=== PATIENT | female | born 1975 | race Caucasian/White ===

== ENCOUNTER 2021-07-03 16:56 | Emergency (ER) | payer OTHER ==
[2021-07-03 19:45] LABS: HEMOGLOBIN 12.8 gm/dl (12.3-15.3); RED BLOOD COUNT 4.14 M/UL (4.00-5.10); WHITE BLOOD COUNT 7.9 K/UL (4.5-11.0)
[2021-07-03 19:51] LABS: BUN/CREATININE RATIO 21 (0-10)
[2021-07-03] MEDS ORDERED: PYRIDIUM200 MG PO (22:22)
[2021-07-03] MEDS ORDERED: ZOFRAN4 MG PO (22:22)
== END 2021-07-04 02:06 | disposition home or self-care (01) ==
LOC: ER1 16:56
PROVIDERS: Physician Assistant Medical
DX: N12 Tubulo-interstitial nephritis, not specified as acute or chronic (principal); I25.2 Old myocardial infarction; Z79.4 Long term (current) use of insulin; J44.9 Chronic obstructive pulmonary disease, unspecified; Z90.710 Acquired absence of both cervix and uterus; F17.210 Nicotine dependence, cigarettes, uncomplicated
CPT/HCPCS: 36600; 80053; 81001; 82009; 82803; 83605; 85025; 87040; 96374; 96375; 99284; J0696; J2270; J2405; Q9967

== ENCOUNTER 2021-07-20 19:19 | Inpatient (IN) | payer OTHER ==
[~2021-07-20] VITALS: Ht 160 cm; Wt 45.4 kg
[~2021-07-20 19:19] MED LIST: LEVOFLOXACIN750 MG PO; PYRIDIUM200 MG PO; ZOFRAN4 MG PO
[2021-07-20 22:14] LABS: HEMOGLOBIN 14.7 gm/dl (12.3-15.3); RED BLOOD COUNT 4.7 M/UL (4.00-5.10)
[2021-07-20 22:50] LABS: BUN/CREATININE RATIO 23 (0-10)
[2021-07-21] MEDS ORDERED: HUMALOG100 UNIT/3 SC ×2 (13:10)
[2021-07-21] MEDS ORDERED: LANTUS SOL100 UNIT/1 SC (13:11)
[2021-07-22 03:36] LABS: WHITE BLOOD COUNT 8.8 K/UL (4.5-11.0)
[2021-07-22 03:47] LABS: HEMOGLOBIN 10.7 gm/dl (12.3-15.3); RED BLOOD COUNT 3.55 M/UL (4.00-5.10)
[2021-07-22] MEDS ORDERED: SODIUM BICARBO650 MG PO (16:27)
[2021-07-22] MEDS ORDERED: LEVOFLOXACIN750 MG PO (16:31)
== END 2021-07-22 19:15 | disposition home or self-care (01) | DRG 871 ==
LOC: ER1 19:19 → CDU 07-21 02:50 → PROG CARE 07-21 19:33
PROVIDERS: Physician Assistant; ADMIT Internal Medicine
DX: A41.9 Sepsis, unspecified organism (principal); E10.10 Type 1 diabetes mellitus with ketoacidosis without coma; Z20.822 Contact with and (suspected) exposure to COVID-19; E43 Unspecified severe protein-calorie malnutrition; E87.1 Hypo-osmolality and hyponatremia; R64 Cachexia; E87.2 Acidosis; Z68.1 Body mass index [BMI] 19.9 or less, adult; N39.0 Urinary tract infection, site not specified; N25.89 Other disorders resulting from impaired renal tubular function; E10.42 Type 1 diabetes mellitus with diabetic polyneuropathy; R33.9 Retention of urine, unspecified; R91.8 Other nonspecific abnormal finding of lung field; E86.0 Dehydration; N31.9 Neuromuscular dysfunction of bladder, unspecified; F17.210 Nicotine dependence, cigarettes, uncomplicated; Z91.14 Patient's other noncompliance with medication regimen; Z79.4 Long term (current) use of insulin; Z90.710 Acquired absence of both cervix and uterus; I25.2 Old myocardial infarction; Z87.440 Personal history of urinary (tract) infections
CPT/HCPCS: 36415; 71250; 80048; 80053; 81001; 82009; 82550; 82553; 82803; 82962; 83605; 83690; 83874; 84484; 85025; 86140; 87040; 87086; 93005; 96374; 96375; 97161; 99285; J1335; J1650; J1885; J2270; J2405; J7030; J7120; U0002

== ENCOUNTER 2021-08-06 01:21 | Inpatient (IN) | payer OTHER ==
[~2021-08-06] VITALS: Ht 160 cm; Wt 43.1 kg
[~2021-08-06 01:21] MED LIST changes: +HUMALOG100 UNIT/3 SC; +LANTUS SOL100 UNIT/1 SC; +SODIUM BICARBO650 MG PO
[2021-08-06 01:54] LABS: HEMOGLOBIN 12.4 gm/dl (12.3-15.3); RED BLOOD COUNT 4.02 M/UL (4.00-5.10); WHITE BLOOD COUNT 5.6 K/UL (4.5-11.0)
[2021-08-06 02:31] LABS: BUN/CREATININE RATIO 17 (0-10)
[2021-08-06 11:41] LABS: BUN/CREATININE RATIO 14 (0-10)
[2021-08-07 05:12] LABS: WHITE BLOOD COUNT 6.4 K/UL (4.5-11.0)
[2021-08-07 05:38] LABS: HEMOGLOBIN 10.1 gm/dl (12.3-15.3); RED BLOOD COUNT 3.36 M/UL (4.00-5.10)
--- NOTE | 2021-08-07 15:01 | NUR ---
08/07/21 1500 report called to [facility] to be transferred to room 4578
[2021-08-08 07:13] LABS: RED BLOOD COUNT 3.37 M/UL (4.00-5.10)
[2021-08-08 07:24] LABS: WHITE BLOOD COUNT 4.4 K/UL (4.5-11.0)
[2021-08-08 07:53] LABS: BUN/CREATININE RATIO 22 (0-10)
--- NOTE | 2021-08-08 22:59 | NUR ---
contacted pharmacy regarding possible duplicate order for HUMALOG.
[2021-08-09 05:55] LABS: HEMOGLOBIN 10.1 gm/dl (12.3-15.3); RED BLOOD COUNT 3.36 M/UL (4.00-5.10); WHITE BLOOD COUNT 5.1 K/UL (4.5-11.0)
--- NOTE | 2021-08-09 12:05 | NUR ---
CALLED [employer] [facility] TO COME PICK HER UP , [facility] HAS NO OTHER WAY TO GET HOME , THEY WILL BE HERE SHORTLY TO PICK HER UP AND WILL CALL [phone] WHEN THEY GET HERE
== END 2021-08-09 13:12 | disposition home or self-care (01) | DRG 690 ==
LOC: ER1 01:21 → CDU 03:39 → 3 EAST 21:39 → M/S 08-07 15:18
PROVIDERS: Emergency Medicine; Internal Medicine; Physician Assistant; ADMIT Internal Medicine
DX: N13.6 Pyonephrosis (principal); N30.00 Acute cystitis without hematuria; E44.0 Moderate protein-calorie malnutrition; E87.1 Hypo-osmolality and hyponatremia; Z20.822 Contact with and (suspected) exposure to COVID-19; M84.48XA Pathological fracture, other site, initial encounter for fracture; Z68.1 Body mass index [BMI] 19.9 or less, adult; E87.2 Acidosis; B95.2 Enterococcus as the cause of diseases classified elsewhere; R73.9 Hyperglycemia, unspecified; N28.1 Cyst of kidney, acquired; R33.9 Retention of urine, unspecified; N31.9 Neuromuscular dysfunction of bladder, unspecified; F17.210 Nicotine dependence, cigarettes, uncomplicated; K76.0 Fatty (change of) liver, not elsewhere classified; E11.40 Type 2 diabetes mellitus with diabetic neuropathy, unspecified; Z87.440 Personal history of urinary (tract) infections; Z79.4 Long term (current) use of insulin; Z90.710 Acquired absence of both cervix and uterus; Z82.49 Family history of ischemic heart disease and other diseases of the circulatory system
CPT/HCPCS: 0240U; 36415; 80048; 80053; 80202; 81001; 82803; 82962; 83605; 83735; 85025; 87040; 87077; 87086; 87186; 96374; 96375; 96376; 97116-GP-CQ; 97161; 99285; J0696; J1170; J1650; J2270; J2405; J3370; J7070; Q9967

== ENCOUNTER 2021-08-15 19:18 | Inpatient (IN) | payer OTHER ==
[~2021-08-15] VITALS: Ht 160 cm; Wt 42.6 kg
[2021-08-15 20:30] LABS: RED BLOOD COUNT 4.02 M/UL (4.00-5.10); WHITE BLOOD COUNT 11.7 K/UL (4.5-11.0)
[2021-08-15 20:34] LABS: HEMOGLOBIN 12.4 gm/dl (12.3-15.3)
[2021-08-16 02:18] LABS: BUN/CREATININE RATIO 19 (0-10)
[2021-08-16] MEDS ORDERED: PHENERGAN 25 MG25 M1 PO (08:34)
[2021-08-17 04:35] LABS: WHITE BLOOD COUNT 11.6 K/UL (4.5-11.0)
[2021-08-17 04:36] LABS: HEMOGLOBIN 9.1 gm/dl (12.3-15.3); RED BLOOD COUNT 3.03 M/UL (4.00-5.10)
[2021-08-18 04:45] LABS: HEMOGLOBIN 9.3 gm/dl (12.3-15.3); RED BLOOD COUNT 3.12 M/UL (4.00-5.10); WHITE BLOOD COUNT 12.9 K/UL (4.5-11.0)
--- NOTE | 2021-08-18 12:47 | NUR ---
NOTIFIED DR. ARANGO ABOUT CHRONIC DIARREHEA ORDERS RECIEVED FOR A C-DIFF CULTURE, PT REQUESTED INCREASE IN PAIN MEDICATION, AND FOR REFUSAL OF HEPARIN STATES THAT HE WILL ADDRESS THE ISSUE WHEN HE SEES HER TODAY.
[2021-08-19 06:36] LABS: HEMOGLOBIN 9.7 gm/dl (12.3-15.3); RED BLOOD COUNT 3.22 M/UL (4.00-5.10); WHITE BLOOD COUNT 12.5 K/UL (4.5-11.0)
[2021-08-19 07:14] LABS: BUN/CREATININE RATIO 17 (0-10)
--- NOTE | 2021-08-19 13:20 | NUR ---
Pt stated that she was able to hold down her fruit from lunch with no n/v at this time, states that it was [id number] today whens she was able to eat her lunch. Pt has tolerated fruit from lunch tray, but has not eaten anything else from the tray. Will reassess in 30 minutes to see if pt tried to consume more of her lunch tray.
[2021-08-20 03:41] LABS: HEMOGLOBIN 9.2 gm/dl (12.3-15.3); RED BLOOD COUNT 3.14 M/UL (4.00-5.10); WHITE BLOOD COUNT 12.8 K/UL (4.5-11.0)
[2021-08-20 04:09] LABS: BUN/CREATININE RATIO 18 (0-10)
[2021-08-20 11:33] LABS: BUN/CREATININE RATIO 15 (0-10)
[2021-08-21 05:34] LABS: HEMOGLOBIN 8.5 gm/dl (12.3-15.3); RED BLOOD COUNT 2.92 M/UL (4.00-5.10); WHITE BLOOD COUNT 10.7 K/UL (4.5-11.0)
[2021-08-21 05:56] LABS: BUN/CREATININE RATIO 17 (0-10)
--- NOTE | 2021-08-21 06:20 | NUR ---
PATIENTS OMER LEAKED ON FLOOR. HOUSE KEEPING NOTIFIED.
--- NOTE | 2021-08-21 11:54 | NUR ---
WHILE ROUNDING ON PATIENT, THE PATIENT STATED THAT SHE WAS FEELING LIGHT HEADED AND WEAK. I CHECKED HER GLUCOSE AND IT WAS 51. I GIVE PATIENT 8OZ OF ORANGE JUICE FOR HYPOGLYCEMIA. WILL RECHECK GLUCOSE IN 15 MINUTES AND CONTINUE TO MONITOR PATIENT.
[2021-08-21] MEDS ORDERED: ZYVOX600 MG PO (14:02)
== END 2021-08-21 16:07 | disposition home or self-care (01) | DRG 699 ==
LOC: ER1 19:18 → M/S 08-16 00:09 → CDU 08-16 00:09 → M/S 08-16 13:44
PROVIDERS: Emergency Medicine; Internal Medicine; ADMIT Family Medicine
DX: T83.511A Infection and inflammatory reaction due to indwelling urethral catheter, initial encounter (principal); N30.00 Acute cystitis without hematuria; Z20.822 Contact with and (suspected) exposure to COVID-19; Z16.21 Resistance to vancomycin; E44.0 Moderate protein-calorie malnutrition; Z68.1 Body mass index [BMI] 19.9 or less, adult; E87.1 Hypo-osmolality and hyponatremia; E87.2 Acidosis; N17.9 Acute kidney failure, unspecified; B95.2 Enterococcus as the cause of diseases classified elsewhere; E86.0 Dehydration; E10.65 Type 1 diabetes mellitus with hyperglycemia; Y84.6 Urinary catheterization as the cause of abnormal reaction of the patient, or of later complication, without mention of misadventure at the time of the procedure; J44.9 Chronic obstructive pulmonary disease, unspecified; F17.210 Nicotine dependence, cigarettes, uncomplicated; E87.6 Hypokalemia; E10.42 Type 1 diabetes mellitus with diabetic polyneuropathy; R33.9 Retention of urine, unspecified; N31.9 Neuromuscular dysfunction of bladder, unspecified; Z79.4 Long term (current) use of insulin; Z87.440 Personal history of urinary (tract) infections; Z90.710 Acquired absence of both cervix and uterus; Z81.8 Family history of other mental and behavioral disorders; Z71.6 Tobacco abuse counseling
CPT/HCPCS: 36415; 80048; 80053; 80202; 81001; 82009; 82803; 82962; 83036; 83605; 83735; 85025; 85027; 87040; 87077; 87086; 87186; 87449; 96374; 96375; 96376; 97116; 97116-GP-CQ; 97161; 97166; 99285; J0878; J1170; J1644; J2020; J2270; J2405; J2543; J3370; J7030; J7070; Q9967; U0002

== ENCOUNTER 2021-11-17 16:59 | Inpatient (IN) | payer OTHER ==
[~2021-11-17] VITALS: Ht 160 cm; Wt 40.8 kg
[~2021-11-17 16:59] MED LIST changes: -LANTUS SOL100 UNIT/1 SC; +LANTUS SOL100 UNIT/1 SQ; +PHENERGAN 25 MG25 M1 PO; +ZYVOX600 MG PO
[2021-11-17 17:54] LABS: HEMOGLOBIN 12.6 gm/dl (12.3-15.3); RED BLOOD COUNT 4.38 M/UL (4.00-5.10); WHITE BLOOD COUNT 5.7 K/UL (4.5-11.0)
[2021-11-17 18:19] LABS: BUN/CREATININE RATIO 27 (0-10)
[2021-11-17 22:55] LABS: BUN/CREATININE RATIO 26 (0-10)
[2021-11-18 02:20] LABS: BUN/CREATININE RATIO 24 (0-10)
[2021-11-18 05:36] LABS: WHITE BLOOD COUNT 6.8 K/UL (4.5-11.0)
[2021-11-18 05:39] LABS: HEMOGLOBIN 10.1 gm/dl (12.3-15.3); RED BLOOD COUNT 3.52 M/UL (4.00-5.10)
[2021-11-18 05:54] LABS: BUN/CREATININE RATIO 23 (0-10)
[2021-11-18 10:06] LABS: BUN/CREATININE RATIO 21 (0-10)
[2021-11-18] MEDS ORDERED: FERROUS GLUCON324 M1 PO (11:08)
[2021-11-18] MEDS ORDERED: FAMOTIDINE20 MG PO (11:08)
[2021-11-18] MEDS ORDERED: GABAPENTIN100 MG PO (11:09)
[2021-11-18] MEDS ORDERED: TAB-A-VITE TA400 MCG PO (11:10)
[2021-11-18] MEDS ORDERED: SERTRALINE HCL50 MG PO (11:10)
--- NOTE | 2021-11-18 17:15 | NUR ---
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
[2021-11-19] MEDS ORDERED: PERCOCET 7.5-31 EACH PO (13:38)
== END 2021-11-19 16:00 | disposition home or self-care (01) | DRG 638 ==
LOC: ER1 16:59 → CCU 21:31 → CDU 21:31 → CCU 11-18 00:26 → MED SURG 4 11-18 16:58
PROVIDERS: Emergency Medicine; Family Medicine; Internal Medicine Infectious Disease; ADMIT Internal Medicine
DX: E10.10 Type 1 diabetes mellitus with ketoacidosis without coma (principal); N13.30 Unspecified hydronephrosis; R64 Cachexia; Z20.822 Contact with and (suspected) exposure to COVID-19; Z68.1 Body mass index [BMI] 19.9 or less, adult; E44.0 Moderate protein-calorie malnutrition; E87.6 Hypokalemia; E83.42 Hypomagnesemia; N31.9 Neuromuscular dysfunction of bladder, unspecified; E10.42 Type 1 diabetes mellitus with diabetic polyneuropathy; F17.210 Nicotine dependence, cigarettes, uncomplicated; Z79.4 Long term (current) use of insulin; Z87.440 Personal history of urinary (tract) infections; Z83.3 Family history of diabetes mellitus
CPT/HCPCS: 36415; 36600; 71045; 80048; 80053; 80307; 81001; 82009; 82550; 82553; 82803; 82962; 83036; 83605; 83690; 83735; 84439; 84443; 84484; 85025; 87040; 87086; 96374; 96375; 96376; 97161; 97166; 97530; 99285; G0378; J0692; J1650; J2185; J2270; J2405; J2543; J3475; J7030; Q9967; U0002

== ENCOUNTER 2022-01-15 20:51 | Inpatient (IN) | payer OTHER ==
[~2022-01-15] VITALS: Ht 160 cm; Wt 40.4 kg
[~2022-01-15 20:51] MED LIST changes: +FAMOTIDINE20 MG PO; +FERROUS GLUCON324 M1 PO; +GABAPENTIN100 MG PO; -LANTUS SOL100 UNIT/1 SQ; +LEVEMIR100 UNIT/1 SQ; +NOVOLOG FL100 UNIT/1 SQ; +PERCOCET 7.5-31 EACH PO; +SERTRALINE HCL50 MG PO; +TAB-A-VITE TA400 MCG PO
[2022-01-15 21:26] LABS: HEMOGLOBIN 10.7 gm/dl (12.3-15.3); RED BLOOD COUNT 3.44 M/UL (4.00-5.10)
[2022-01-16 04:53] LABS: HEMOGLOBIN 10.1 gm/dl (12.3-15.3); RED BLOOD COUNT 3.23 M/UL (4.00-5.10); WHITE BLOOD COUNT 10.4 K/UL (4.5-11.0)
[2022-01-16 05:31] LABS: BUN/CREATININE RATIO 16 (0-10)
[2022-01-16 08:49] LABS: BUN/CREATININE RATIO 14 (0-10)
[2022-01-16] MEDS ORDERED: PROTONIX 40 MG40 M1 PO (11:05)
[2022-01-16 12:29] LABS: BUN/CREATININE RATIO 14 (0-10)
[2022-01-16 16:37] LABS: BUN/CREATININE RATIO 12 (0-10)
[2022-01-17 02:03] LABS: BUN/CREATININE RATIO 14 (0-10)
[2022-01-17 05:02] LABS: HEMOGLOBIN 10.6 gm/dl (12.3-15.3); RED BLOOD COUNT 3.43 M/UL (4.00-5.10); WHITE BLOOD COUNT 11.1 K/UL (4.5-11.0)
[2022-01-17 14:14] LABS: BUN/CREATININE RATIO 13 (0-10)
[2022-01-17 15:27] LABS: BUN/CREATININE RATIO 13 (0-10)
--- NOTE | 2022-01-18 00:45 | NUR ---
IV ACCESS ATTEMPTED MULTIPLE TIMES WITHOUT SUCCESS. ER STAFF SENDING PERSONNEL TO ATTEMPT ULTRASOUND IV ACCESS.
[2022-01-18 04:48] LABS: HEMOGLOBIN 9.4 gm/dl (12.3-15.3)
[2022-01-18 04:52] LABS: RED BLOOD COUNT 3.04 M/UL (4.00-5.10); WHITE BLOOD COUNT 6.8 K/UL (4.5-11.0)
[2022-01-18 05:22] LABS: BUN/CREATININE RATIO 10 (0-10)
[2022-01-18] MEDS ORDERED: PROAIR HFA8.5 GM INH (09:57)
[2022-01-18] MEDS ORDERED: LISINOPRIL10 MG PO (09:58)
[2022-01-18] MEDS ORDERED: ADVAIR 500-501 EACH INH (09:58)
[2022-01-18] MEDS ORDERED: ALBUTEROL2.5 MG/3 M INH (09:58)
[2022-01-18] MEDS ORDERED: LEVOCETIRIZINE D5 MG PO (09:58)
[2022-01-18] MEDS ORDERED: SPIRIVA18 MCG INH (09:59)
[2022-01-18] MEDS ORDERED: LANTUS INS100 UTS/M1 SC (11:31)
[2022-01-18] MEDS ORDERED: HUMALOG 10100 UNITS/ SC (11:31)
[2022-01-18] MEDS ORDERED: LEVOFLOXACIN750 MG PO (11:35)
== END 2022-01-18 16:08 | disposition home or self-care (01) | DRG 871 ==
LOC: ER1 20:51 → CCU 23:08 → CDU 23:08 → CCU 01-16 01:00
PROVIDERS: Internal Medicine Pulmonary Disease; Physician Assistant; ADMIT Internal Medicine
PROC: 3E03329 Introduction of Other Anti-infective into Peripheral Vein, Percutaneous Approach (ICD-10-PCS; 2022-01-15)
PROC: 3E033XZ Introduction of Vasopressor into Peripheral Vein, Percutaneous Approach (ICD-10-PCS; principal; 2022-01-16)
DX: A41.9 Sepsis, unspecified organism (principal); E10.10 Type 1 diabetes mellitus with ketoacidosis without coma; E43 Unspecified severe protein-calorie malnutrition; R65.21 Severe sepsis with septic shock; N13.6 Pyonephrosis; N17.9 Acute kidney failure, unspecified; E10.40 Type 1 diabetes mellitus with diabetic neuropathy, unspecified; G89.29 Other chronic pain; N32.0 Bladder-neck obstruction; F11.10 Opioid abuse, uncomplicated; L89.151 Pressure ulcer of sacral region, stage 1; E83.39 Other disorders of phosphorus metabolism; D64.9 Anemia, unspecified; Z20.822 Contact with and (suspected) exposure to COVID-19; E83.42 Hypomagnesemia; N31.9 Neuromuscular dysfunction of bladder, unspecified; E10.65 Type 1 diabetes mellitus with hyperglycemia; F17.210 Nicotine dependence, cigarettes, uncomplicated; Z90.89 Acquired absence of other organs; Z91.14 Patient's other noncompliance with medication regimen; Z90.710 Acquired absence of both cervix and uterus; Z83.3 Family history of diabetes mellitus; Z79.4 Long term (current) use of insulin; Z79.899 Other long term (current) drug therapy
CPT/HCPCS: 36415; 71045; 80048; 80053; 80307; 81001; 82550; 82553; 82800; 82962; 83605; 83735; 83880; 84100; 84439; 84443; 84484; 84550; 85025; 86140; 87040; 87077; 87086; 87186; 93005; 96374; 96375; 96376; 99285; C9113; J0696; J1170; J1650; J2185; J2270; J2405; J2550; J3475; J3480; Q9967

== ENCOUNTER 2022-01-30 15:35 | Inpatient (IN) | payer OTHER ==
[~2022-01-30] VITALS: Ht 160 cm; Wt 36.3 kg
[~2022-01-30 15:35] MED LIST changes: +ADVAIR 500-501 EACH INH; +ALBUTEROL2.5 MG/3 M INH; +HUMALOG 10100 UNITS/ SC; +LANTUS INS100 UTS/M1 SC; +LEVOCETIRIZINE D5 MG PO; +LISINOPRIL10 MG PO; +PROAIR HFA8.5 GM INH; +PROTONIX 40 MG40 M1 PO; +SPIRIVA18 MCG INH
[2022-01-30 16:22] LABS: HEMOGLOBIN 11.2 gm/dl (12.3-15.3); RED BLOOD COUNT 3.62 M/UL (4.00-5.10); WHITE BLOOD COUNT 11.1 K/UL (4.5-11.0)
[2022-01-30 16:48] LABS: BUN/CREATININE RATIO 21 (0-10)
[2022-01-31 04:34] LABS: HEMOGLOBIN 10.1 gm/dl (12.3-15.3); RED BLOOD COUNT 3.29 M/UL (4.00-5.10); WHITE BLOOD COUNT 8.7 K/UL (4.5-11.0)
[2022-01-31 20:20] LABS: ADENOVIRUS F 40/41 Not Detected (Negative); ASTROVIRUS Not Detected (Negative); CAMPYLOBACTER Not Detected (Negative); CRYPTOSPORIDIUM Not Detected (Negative); E.COLI 0157 Not Detected (Negative); ENTAMOEBA HISTOLYTICA Not Detected (Negative); ENTEROAGGREGATIVE E.COLI (EAEC Not Detected (Negative); ENTEROPATHOGENIC E.COLI (EPEC) Not Detected (Negative); ENTEROTOXIGENIC E.COLI (ETEC) Not Detected (Negative); GIARDIA LAMBLIA Not Detected (Negative); NOROVIRUS GI/GII Not Detected (Negative); PLESIOMONAS SHIGELLOIDES Not Detected (Negative); ROTOVIRUS A Not Detected (Negative); SALMONELLA Not Detected (Negative); SAPOVIRUS Not Detected (Negative); SHIG/ENTEROINVAS.ECOLI (EIEC) Not Detected (Negative); SHIGA-LIK TOX.PRO.E.COLI (STEC Not Detected (Negative); VIBRIO Not Detected (Negative); VIBRIO CHOLERAE Not Detected (Negative); YERSINIA ENTEROCOLITICA Not Detected (Negative)
[2022-02-01 06:35] LABS: HEMOGLOBIN 9.5 gm/dl (12.3-15.3); RED BLOOD COUNT 3.11 M/UL (4.00-5.10)
[2022-02-01 06:40] LABS: WHITE BLOOD COUNT 6.5 K/UL (4.5-11.0)
[2022-02-01 07:45] LABS: CLOSTRIDIUM DIFFICILE TOX A/B Not Detected (Negative)
[2022-02-02 06:43] LABS: HEMOGLOBIN 9.6 gm/dl (12.3-15.3); RED BLOOD COUNT 3.14 M/UL (4.00-5.10); WHITE BLOOD COUNT 6.5 K/UL (4.5-11.0)
[2022-02-03 06:23] LABS: HEMOGLOBIN 9.3 gm/dl (12.3-15.3); RED BLOOD COUNT 3.06 M/UL (4.00-5.10); WHITE BLOOD COUNT 7.5 K/UL (4.5-11.0)
[2022-02-04 06:23] LABS: HEMOGLOBIN 9.5 gm/dl (12.3-15.3); RED BLOOD COUNT 3.13 M/UL (4.00-5.10); WHITE BLOOD COUNT 7.4 K/UL (4.5-11.0)
[2022-02-05 06:39] LABS: HEMOGLOBIN 9.2 gm/dl (12.3-15.3); RED BLOOD COUNT 3.05 M/UL (4.00-5.10); WHITE BLOOD COUNT 7.7 K/UL (4.5-11.0)
[2022-02-06 21:15] LABS: URINE CREATININE 1.4 mg/dL
[2022-02-07 02:08] LABS: HEMOGLOBIN 8.9 gm/dl (12.3-15.3); RED BLOOD COUNT 2.96 M/UL (4.00-5.10); WHITE BLOOD COUNT 7.8 K/UL (4.5-11.0)
--- NOTE | 2022-02-07 10:47 | NUR ---
PATIENT REQUESTED BLOOD SUGAR TO BE CHECKED, SHE STATED SHE FELT LIKE IT WAS LOW AND SHE NEEDED ORANGE JUICE. PATIENTS FINGERSTICK WAS 22. AMP OF D50 GIVEN[address] DR MEYER WAS NOTIFIED. BLOOD SUGAR RECHECKED, FINGERSTICK WAS 175.
[2022-02-08 02:05] LABS: HEMOGLOBIN 8.8 gm/dl (12.3-15.3); RED BLOOD COUNT 2.94 M/UL (4.00-5.10); WHITE BLOOD COUNT 7.8 K/UL (4.5-11.0)
[2022-02-09 02:28] LABS: HEMOGLOBIN 8.4 gm/dl (12.3-15.3); RED BLOOD COUNT 2.74 M/UL (4.00-5.10)
[2022-02-10 06:21] LABS: HEMOGLOBIN 7.8 gm/dl (12.3-15.3); RED BLOOD COUNT 2.68 M/UL (4.00-5.10)
[2022-02-10 06:29] LABS: WHITE BLOOD COUNT 9.2 K/UL (4.5-11.0)
[2022-02-12 08:13] LABS: HEMOGLOBIN 8.2 gm/dl (12.3-15.3); RED BLOOD COUNT 2.76 M/UL (4.00-5.10); WHITE BLOOD COUNT 11.3 K/UL (4.5-11.0)
[2022-02-14 03:57] LABS: HEMOGLOBIN 7.4 gm/dl (12.3-15.3)
[2022-02-14 04:00] LABS: RED BLOOD COUNT 2.47 M/UL (4.00-5.10)
[2022-02-15 12:22] LABS: HEMOGLOBIN 7.3 gm/dl (12.3-15.3); RED BLOOD COUNT 2.45 M/UL (4.00-5.10); WHITE BLOOD COUNT 9.8 K/UL (4.5-11.0)
[2022-02-16 07:11] LABS: WHITE BLOOD COUNT 9.9 K/UL (4.5-11.0)
[2022-02-16 07:19] LABS: HEMOGLOBIN 9.4 gm/dl (12.3-15.3); RED BLOOD COUNT 3.14 M/UL (4.00-5.10)
--- NOTE | 2022-02-16 09:44 | NUR ---
PATIENT REFUSED TO WEAR HEART MONITOR. SHE SAID SHE DOES NOT FEEL LIKE BEING BOTHERED WITH IT TODAY. SHE JUST WANTS TO REST. MD AWARE.
[2022-02-16] MEDS ORDERED: NYSTATIN60 GM TOP (13:35)
[2022-02-16] MEDS ORDERED: MELATONIN3 MG PO (13:35)
[2022-02-16] MEDS ORDERED: LANTUS INS100 UTS/M1 SC (13:39)
[2022-02-16] MEDS ORDERED: FLORINEF 0.1 M0.1 MG PO (13:39)
[2022-02-16] MEDS ORDERED: ASPIRIN EC81 MG PO (13:39)
[2022-02-16] MEDS ORDERED: SODIUM BICARBO650 M1 PO (13:39)
== END 2022-02-16 15:12 | disposition home health service (06) | DRG 698 ==
LOC: ER1 15:35 → MED SURG 4 17:41 → CDU 17:41 → MED SURG 4 19:53
PROVIDERS: Emergency Medicine; Internal Medicine; Internal Medicine Infectious Disease; Internal Medicine Nephrology; ADMIT Internal Medicine
PROC: 02HV33Z Insertion of Infusion Device into Superior Vena Cava, Percutaneous Approach (ICD-10-PCS; principal; 2022-01-30)
PROC: B548ZZA Ultrasonography of Superior Vena Cava, Guidance (ICD-10-PCS; 2022-01-30)
DX: T83.512A Infection and inflammatory reaction due to nephrostomy catheter, initial encounter (principal); E43 Unspecified severe protein-calorie malnutrition; N13.6 Pyonephrosis; E87.1 Hypo-osmolality and hyponatremia; Z20.822 Contact with and (suspected) exposure to COVID-19; F11.20 Opioid dependence, uncomplicated; Z68.1 Body mass index [BMI] 19.9 or less, adult; M48.56XA Collapsed vertebra, not elsewhere classified, lumbar region, initial encounter for fracture; E87.2 Acidosis; N17.9 Acute kidney failure, unspecified; R07.89 Other chest pain; F17.210 Nicotine dependence, cigarettes, uncomplicated; R94.5 Abnormal results of liver function studies; I12.9 Hypertensive chronic kidney disease with stage 1 through stage 4 chronic kidney disease, or unspecified chronic kidney disease; I95.89 Other hypotension; D63.1 Anemia in chronic kidney disease; D50.9 Iron deficiency anemia, unspecified; F12.10 Cannabis abuse, uncomplicated; E10.22 Type 1 diabetes mellitus with diabetic chronic kidney disease; E10.40 Type 1 diabetes mellitus with diabetic neuropathy, unspecified; E87.5 Hyperkalemia; N32.0 Bladder-neck obstruction; K52.9 Noninfective gastroenteritis and colitis, unspecified; Y83.8 Other surgical procedures as the cause of abnormal reaction of the patient, or of later complication, without mention of misadventure at the time of the procedure; N18.32 Chronic kidney disease, stage 3b; E86.0 Dehydration; R53.81 Other malaise; F19.10 Other psychoactive substance abuse, uncomplicated; E10.649 Type 1 diabetes mellitus with hypoglycemia without coma; M54.9 Dorsalgia, unspecified; G89.29 Other chronic pain; N31.9 Neuromuscular dysfunction of bladder, unspecified; Z93.6 Other artificial openings of urinary tract status; Z91.14 Patient's other noncompliance with medication regimen; Z79.82 Long term (current) use of aspirin; Z76.5 Malingerer [conscious simulation]; Z90.710 Acquired absence of both cervix and uterus; Z82.49 Family history of ischemic heart disease and other diseases of the circulatory system; Z83.3 Family history of diabetes mellitus
CPT/HCPCS: 36415; 36430; 36600; 71045; 80048; 80053; 80307; 81001; 82009; 82436; 82533; 82550; 82553; 82565; 82570; 82575; 82728; 82803; 82962; 83540; 83550; 83605; 83690; 83735; 83880; 84100; 84132; 84133; 84295; 84300; 84443; 84484; 85025; 85027; 85652; 86140; 86850; 86900; 86901; 86920; 87040; 87086; 87507; 93005; 96374; 96375; 97116; 97161; 97166; 99285; J0696; J0834; J1170; J1200; J1335; J1644; J1650; J1756; J2185; J2270; J2405; J7030; J7050; P9016; P9047

== ENCOUNTER 2022-03-16 15:40 | Inpatient (IN) | payer OTHER ==
[~2022-03-16] VITALS: Ht 160 cm; Wt 36.3 kg
[~2022-03-16 15:40] MED LIST changes: +ASPIRIN EC81 MG PO; +FLORINEF 0.1 M0.1 MG PO; +MELATONIN3 MG PO; +NYSTATIN60 GM TOP; +SODIUM BICARBO650 M1 PO
[2022-03-16 16:29] LABS: HEMOGLOBIN 9.1 gm/dl (12.3-15.3); RED BLOOD COUNT 2.96 M/UL (4.00-5.10); WHITE BLOOD COUNT 8.3 K/UL (4.5-11.0)
[2022-03-17 05:46] LABS: HEMOGLOBIN 8.2 gm/dl (12.3-15.3); RED BLOOD COUNT 2.69 M/UL (4.00-5.10)
[2022-03-17] MEDS ORDERED: LEVEMIR100 UNIT/1 SQ (12:40)
[2022-03-17] MEDS ORDERED: PROMETHAZINE HC25 M1 PO (13:50)
[2022-03-19 04:28] LABS: HEMOGLOBIN 7.9 gm/dl (12.3-15.3); RED BLOOD COUNT 2.55 M/UL (4.00-5.10); WHITE BLOOD COUNT 6.8 K/UL (4.5-11.0)
[2022-03-20 04:51] LABS: HEMOGLOBIN 7.7 gm/dl (12.3-15.3); RED BLOOD COUNT 2.49 M/UL (4.00-5.10); WHITE BLOOD COUNT 5.6 K/UL (4.5-11.0)
[2022-03-21 05:52] LABS: HEMOGLOBIN 7.9 gm/dl (12.3-15.3); RED BLOOD COUNT 2.52 M/UL (4.00-5.10)
[2022-03-21 05:53] LABS: WHITE BLOOD COUNT 7.2 K/UL (4.5-11.0)
[2022-03-22 02:50] LABS: RED BLOOD COUNT 2.59 M/UL (4.00-5.10); WHITE BLOOD COUNT 7.5 K/UL (4.5-11.0)
[2022-03-23 06:22] LABS: HEMOGLOBIN 8.3 gm/dl (12.3-15.3); RED BLOOD COUNT 2.67 M/UL (4.00-5.10); WHITE BLOOD COUNT 6.1 K/UL (4.5-11.0)
--- NOTE | 2022-03-23 11:01 | NUR ---
1055: F/U BLOOD GLUCOSE NOTED NOW AT 288. PATIENT REFUSED TO TAKE ANY ADDITION INSULIN AT THIS TIME. DR MULLINS NOTIFIED OF PATIENTS DECISION
[2022-03-24 06:02] LABS: HEMOGLOBIN 8.2 gm/dl (12.3-15.3); RED BLOOD COUNT 2.62 M/UL (4.00-5.10); WHITE BLOOD COUNT 6.7 K/UL (4.5-11.0)
--- NOTE | 2022-03-24 10:31 | NUR ---
TALYA DIAZ MADE AWARE OF KIDNEY FUNCTION, CT ABD PELVIS W CONTRAST CHANGED TO CT ABD PELVIS W/O. ORDER REPEATED AND VERFIED.
[2022-03-25 06:39] LABS: HEMOGLOBIN 8.5 gm/dl (12.3-15.3); RED BLOOD COUNT 2.66 M/UL (4.00-5.10); WHITE BLOOD COUNT 7.2 K/UL (4.5-11.0)
[2022-03-25] MEDS ORDERED: OXYCONTIN10 MG PO (16:00)
[2022-03-25] MEDS ORDERED: ROXICODONE TAB 55 MG PO (16:00)
[2022-03-25] MEDS ORDERED: ATORVASTATIN CA20 MG PO (16:00)
[2022-03-25] MEDS ORDERED: METOCLOPRAMIDE H5 MG PO (16:00)
--- NOTE | 2022-03-25 16:30 | NUR ---
RN TO PT ROOM PT STANDING AT BEDSIDE REACHING FOR CURTAIN. PT ASSISTED BACK TO BED. BED ALARM INTIATED TO PREVENT FALLS. NAD, CALL LIGHT IN REACH.
--- NOTE | 2022-03-25 17:02 | NUR ---
SRNAS TO BEDSIDE AT THIS TIME. PT BED ALARM ALARMING. PT REFUSES BED ALARM. REPORTED TO RN AT THIS TIME. NAD, CALL LIGHT IN REACH.
--- NOTE | 2022-03-25 18:15 | NUR ---
REPORT TO CONTINUED CARE RNIsabel VAZQUEZ, CALL LIGHT IN REACH.
--- NOTE | 2022-03-25 18:29 | NUR ---
[facility] NOTIFIED OF PT TRANSFER REQUEST.
== END 2022-03-25 22:17 | DRG 698 ==
LOC: ER1 15:40 → CCU 22:20 → CDU 22:20 → MED SURG 4 22:20 → CCU 23:33 → MED SURG 4 03-17 14:06
PROVIDERS: Internal Medicine; Physician Assistant; ADMIT Internal Medicine
PROC: 0K9N30Z Drainage of Right Hip Muscle with Drainage Device, Percutaneous Approach (ICD-10-PCS; principal; 2022-03-18)
DX: T83.512A Infection and inflammatory reaction due to nephrostomy catheter, initial encounter (principal); E10.10 Type 1 diabetes mellitus with ketoacidosis without coma; E43 Unspecified severe protein-calorie malnutrition; K68.12 Psoas muscle abscess; I50.23 Acute on chronic systolic (congestive) heart failure; N15.1 Renal and perinephric abscess; N13.6 Pyonephrosis; N17.9 Acute kidney failure, unspecified; I13.0 Hypertensive heart and chronic kidney disease with heart failure and stage 1 through stage 4 chronic kidney disease, or unspecified chronic kidney disease; E87.1 Hypo-osmolality and hyponatremia; R64 Cachexia; Z68.1 Body mass index [BMI] 19.9 or less, adult; J43.2 Centrilobular emphysema; Z79.899 Other long term (current) drug therapy; E10.40 Type 1 diabetes mellitus with diabetic neuropathy, unspecified; G40.909 Epilepsy, unspecified, not intractable, without status epilepticus; N18.30 Chronic kidney disease, stage 3 unspecified; R53.81 Other malaise; E88.09 Other disorders of plasma-protein metabolism, not elsewhere classified; D63.1 Anemia in chronic kidney disease; F19.10 Other psychoactive substance abuse, uncomplicated; L89.322 Pressure ulcer of left buttock, stage 2; L89.312 Pressure ulcer of right buttock, stage 2; Z20.822 Contact with and (suspected) exposure to COVID-19; F17.200 Nicotine dependence, unspecified, uncomplicated; Z74.01 Bed confinement status; Z86.73 Personal history of transient ischemic attack (TIA), and cerebral infarction without residual deficits; Z90.49 Acquired absence of other specified parts of digestive tract; Z90.710 Acquired absence of both cervix and uterus; Z90.89 Acquired absence of other organs; Z82.49 Family history of ischemic heart disease and other diseases of the circulatory system; Z79.82 Long term (current) use of aspirin
CPT/HCPCS: ECHO; 0240U; 36415; 71045; 71250; 77012; 80048; 80053; 80202; 81001; 82009; 82550; 82553; 82800; 82962; 83605; 83735; 83880; 84484; 85025; 85027; 87040; 87070; 87086; 87205; 93005; 93306; 96374; 96375; 99285; C1729; J0692; J0696; J1170; J1650; J1885; J2248; J2270; J2405; J3370; J7070; Q9967; U0002